=== PATIENT | male | born 1955 | race Caucasian/White ===

== ENCOUNTER 2019-03-29 05:59 | Day surgery (SDC) | payer OTHER ==
[~2019-03-29] VITALS: Ht 175.3 cm; Wt 156.1 kg
[2019-03-29 06:09] VITALS: BP 139/89
[2019-03-29] MEDS ORDERED: HEPARIN 1,000 UNITS/ML, 30ML ONE (06:26)
[2019-03-29] MEDS ORDERED: EXEN2PEN SQ (06:31)
[2019-03-29] MEDS ORDERED: CHOL2000 PO (06:31)
[2019-03-29] MEDS ORDERED: ATOR20TA37 PO (06:31)
[2019-03-29] MEDS ORDERED: UBID100C24 PO (06:31)
[2019-03-29] MEDS ORDERED: METF-688 PO (06:31)
[2019-03-29] MEDS ORDERED: ASPI81TA45 PO (06:31)
[2019-03-29] MEDS ORDERED: MAGN400T36 PO (06:31)
[2019-03-29] MEDS ORDERED: OMEG-160 PO (06:31)
[2019-03-29] MEDS ORDERED: MULT-257 PO (06:31)
[2019-03-29] MEDS ORDERED: BUPIVACAINE/PF 0.5% ONE (06:46)
[2019-03-29] MEDS ORDERED: MIDAZOLAM 1 MG/ML, 2ML ONE (06:48)
[2019-03-29] MEDS ORDERED: FENTANYL PF 100 MCG/2ML ONE (06:48)
[2019-03-29 06:49] LABS: ALANINE AMINOTRANSFERASE 45 U/L (12-78); ALBUMIN 3.6 g/dL (3.4-5.0); ANION GAP 5 mmol/L (5-15); CALCIUM 9.1 mg/dL (8.5-10.1); CHLORIDE 105 mmol/L (98-107); CREATININE 0.98 mg/dL (0.7-1.3)
[2019-03-29 06:51] LABS: ALKALINE PHOSPHATASE 133 U/L (45-117); BILIRUBIN,TOTAL 0.4 mg/dL (0.2-1.0); TOTAL PROTEIN 7.4 g/dL (6.4-8.2)
[2019-03-29] MEDS ORDERED: LACTATED RINGERS 1,000 ML IV SCH (06:53)
[2019-03-29] MEDS ORDERED: ACETAMINOPHEN 325 MG TABLET PO PRN (07:30)
[2019-03-29] MEDS ORDERED: OXYcodone 5 MG/5 ML ORAL.SOL UDC PO PRN (07:30)
[2019-03-29] MEDS ORDERED: HYDROmorphone 2 MG/ML, 1ML IVPush PRN (07:30)
[2019-03-29] MEDS ORDERED: hydrALAzine 20 MG/ML, 1ML IV PRN (07:30)
[2019-03-29] MEDS ORDERED: DIAZEPAM 5 MG/ML, 2ML IVPush PRN (07:30)
[2019-03-29] MEDS ORDERED: KETOROLAC 30 MG/1 ML IV PRN (07:30)
[2019-03-29] MEDS ORDERED: MEPERIDINE/PF 25MG/0.5ML IVPush PRN (07:30)
[2019-03-29] MEDS ORDERED: PROMETHAZINE 25 MG/ML, 1ML IV PRN (07:30)
[2019-03-29] MEDS ORDERED: FENTANYL PF 100 MCG/2ML IV PRN (07:30)
[2019-03-29] MEDS ORDERED: LABETALOL 5MG/ML, 20ML IV PRN (07:30)
[2019-03-29] MEDS ORDERED: ALBUTEROL SULFATE 2.5 MG/3 ML NPPB PRN (07:30)
[2019-03-29] MEDS ORDERED: GLYCOPYRROLATE 0.2MG/1ML, 5ML ONE (08:23)
[2019-03-29] MEDS ORDERED: NEOSTIGMINE 1 MG/ML, 10ML ONE (08:23)
[2019-03-29] MEDS ORDERED: CEFAZOLIN 1,000 MG ONE (08:23)
[2019-03-29] MEDS ORDERED: ROCURONIUM 10MG/ML,5ML ONE (08:23)
[2019-03-29] MEDS ORDERED: DEXAMETHASONE 4 MG/ML, 1ML ONE (08:23)
[2019-03-29] MEDS ORDERED: ONDANSETRON 2MG/ML, 2ML ONE (08:23)
[2019-03-29] MEDS ORDERED: PROPOFOL 10 MG/ML, 20ML ONE (08:23)
[2019-03-29] MEDS ORDERED: LIDOCAINE-MPF 2% ,5ML ONE (08:23)
[2019-03-29] MEDS ORDERED: SUCCINYLCHOLINE 20 MG/ML, 10ML ONE (08:23)
== END 2019-03-29 10:00 | disposition home or self-care (01) ==
LOC: OUT 05:59
PROVIDERS: ATTEND Surgery
DX: C20 Malignant neoplasm of rectum (principal); E11.9 Type 2 diabetes mellitus without complications; E78.5 Hyperlipidemia, unspecified; E66.01 Morbid (severe) obesity due to excess calories; Z68.43 Body mass index [BMI] 50.0-59.9, adult; Z79.82 Long term (current) use of aspirin; Z79.84 Long term (current) use of oral hypoglycemic drugs; Z79.899 Other long term (current) drug therapy; Z98.890 Other specified postprocedural states
CPT/HCPCS: 36415; 36561; 77001; 80053; 93005; C1788; J0330; J0690; J1100; J1644; J2250; J2405; J2704; J3010; J7120; J2710

== ENCOUNTER 2019-04-01 06:06 | Day surgery (SDC) | payer OTHER ==
[~2019-04-01] VITALS: Ht 175.3 cm; Wt 155.2 kg
[~2019-04-01 06:06] MED LIST: ASPI81TA45 PO; ATOR20TA37 PO; CHOL2000 PO; EXEN2PEN SQ; MAGN400T36 PO; METF-688 PO; MULT-257 PO; OMEG-160 PO; UBID100C24 PO
[2019-04-01] MEDS ORDERED: SODIUM CHLORIDE 0.9% 1,000 ML IV SCH (07:08)
[2019-04-01 07:09] VITALS: BP 151/91
[2019-04-01 08:11] LABS: INTERNATIONAL NORMALIZED RATIO 0.96 (0.93-1.1); PROTHROMBIN TIME 10.1 Seconds (9.6-11.5)
[2019-04-01] MEDS ORDERED: NALOXONE 1 MG/ML, 2ML ONE (08:20)
[2019-04-01] MEDS ORDERED: FLUMAZENIL 0.1 MG/1 ML, 5ML ONE (08:20)
[2019-04-01] MEDS ORDERED: MIDAZOLAM 1 MG/ML, 5ML ONE (08:20)
[2019-04-01] MEDS ORDERED: FENTANYL PF 100 MCG/2ML ONE ×2 (08:20)
== END 2019-04-01 11:05 | disposition home or self-care (01) ==
LOC: RAD 06:06
PROVIDERS: ATTEND Surgery
DX: R16.0 Hepatomegaly, not elsewhere classified (principal); C21.8 Malignant neoplasm of overlapping sites of rectum, anus and anal canal; E11.9 Type 2 diabetes mellitus without complications; E78.00 Pure hypercholesterolemia, unspecified; G47.30 Sleep apnea, unspecified; E66.9 Obesity, unspecified; Z68.43 Body mass index [BMI] 50.0-59.9, adult; Z98.890 Other specified postprocedural states
CPT/HCPCS: 47000; 77012; 82962; 85610; 88307; 88313; 99156; 99157; J2250; J3010; J7030; J2310

== ENCOUNTER 2019-04-23 11:39 | Outpatient (CLI) | payer OTHER | END 2019-04-23 23:59 | disposition home or self-care (01) | LOC: PETCFH 11:39 | PROVIDERS: ATTEND Internal Medicine Hematology & Oncology | DX: C78.7 Secondary malignant neoplasm of liver and intrahepatic bile duct (principal); C20 Malignant neoplasm of rectum | CPT/HCPCS: 78815; A9552 ==

== ENCOUNTER 2019-06-18 13:31 | Inpatient (IN) | payer OTHER ==
[~2019-06-18] VITALS: Ht 175.3 cm; Wt 168.6 kg
[2019-06-18] MEDS ORDERED: SODIUM CHLORIDE 0.9% 1,000ML IVBOLUS ONE (14:00)
[2019-06-18] MEDS ORDERED: SODIUM CHLORIDE FLUSH 10ML SYR IVF ONE (14:00)
[2019-06-18] MEDS ORDERED: DIPH,PERTUSS(ACELL),TET VAC/PF 0.5 ML IM-VACC ONE (14:12)
[2019-06-18] MEDS ORDERED: LIDOCAINE-MPF 1%, 5ML ONE (14:12)
--- NOTE | 2019-06-18 14:36 | NUR ---
LATE ENTRY: Tank is a 64 y/o male that arrives to the ed via ems from home for sudden onset of rest distress and not feeling well. Pt reports that when he got up he started to get resp distress imediately and was unable to get his breathing under control, Pt reports he is being treated for colorectal cancer. Pt arrivedon a cpap machine and noticeably was working hard to breathe. Transfered to our optiflow machine but was unable to tolerate so switched back to cpap on 13 peep, 35%o2 and. Pts effort returned. Pt central line Z"port" was accessed via sterile technique and labs were drawn.
[2019-06-18 14:42] LABS: BASOPHILS % (AUTO) 0 % (0-1); EOSINOPHILS # (AUTO) 0.02 x10^3/uL (0-0.4); EOSINOPHILS % (AUTO) 0 % (1-7); LYMPHOCYTES # (AUTO) 0.59 x10^3/uL (1-3.4); LYMPHOCYTES % (AUTO) 8 % (22-44); MD NO; MEAN CORPUSCULAR HEMOGLOBIN 33.5 pg (27.5-34.5); MEAN CORPUSCULAR HGB CONC 33.5 g/dL (33.2-36.2); MEAN CORPUSCULAR VOLUME 99.9 fL (81-97); MONOCYTES # (AUTO) 1.26 x10^3/uL (0.2-0.8); MONOCYTES % (AUTO) 16 % (2-9); NEUTROPHILS # (AUTO) 5.99 x10^3/uL (1.8-6.8); NEUTROPHILS % (AUTO) 76 % (42-75); PLATELET COUNT 113 x10^3/uL (130-400); RED BLOOD COUNT 4.51 x10^6/uL (4.38-5.82)
--- NOTE | 2019-06-18 14:47 | NUR ---
pt medicated per emar.
[2019-06-18 14:52] LABS: ALANINE AMINOTRANSFERASE 51 U/L (12-78); ALBUMIN 3.6 g/dL (3.4-5.0); ANION GAP 13 mmol/L (5-15); CALCIUM 8.9 mg/dL (8.5-10.1); CHLORIDE 103 mmol/L (98-107); CREATININE 1.43 mg/dL (0.7-1.3)
[2019-06-18 14:56] LABS: ALKALINE PHOSPHATASE 105 U/L (45-117); BILIRUBIN,TOTAL 0.9 mg/dL (0.2-1.0); INTERNATIONAL NORMALIZED RATIO 1.17 (0.93-1.1); PROTHROMBIN TIME 12.4 Seconds (9.6-11.5); TOTAL PROTEIN 7.3 g/dL (6.4-8.2)
--- NOTE | 2019-06-18 15:52 | NUR ---
Pt unstable with transfers, pt becomes cynotic in the face and resp rate increases by 10. Pt reports severe sob with exertion, pt asked to not move anymore. Pt moved to hospital bed and placed by on CPAP. Pt tolerating cpap well. informed of possible critical results on ct per ct team. Pt to recieve tpa possibly. Pt will move to trauma 4 for closer supervision. Pt has remained on monitors. updated on POC, MD informed. PT to be moved soon to critical care bay.
[2019-06-18] MEDS ORDERED: OMNIPAQUE 350 MG/ML, 100ML BOTTLE ONE (15:54)
[2019-06-18] MEDS ORDERED: ALTEPLASE 1 MG/ML, 100ML ONE (15:55)
--- NOTE | 2019-06-18 15:59 | NUR ---
bedside report from Justyn N[place]ES, pt moved to T4. pt on Bipap. Per MD hold Tpa at this time. at bedside, updated on POC.
--- NOTE | 2019-06-18 15:59 | NUR ---
Cardiovascular US called for STAT ECHO per Dr. Frank.
[2019-06-18] MEDS ORDERED: ALTEPLASE 100 MG in BAG 1 EACH IV ONE (16:00)
--- NOTE | 2019-06-18 16:07 | NUR ---
Bedside report to Myranda salas RN, pt on all monitors and lines verified at bedside.
--- NOTE | 2019-06-18 16:11 | NUR ---
ECHO AT BEDSIDE
--- NOTE | 2019-06-18 16:19 | NUR ---
MD Thorne at bedside to assess pt, bedside ECHO in progress. Pt in NAD, awaiting orders, WCTM.
[2019-06-18] MEDS ORDERED: BISACODYL 10 MG SUPP PR PRN (16:30)
[2019-06-18] MEDS ORDERED: ACETAMINOPHEN 325 MG TABLET PO PRN (16:30)
[2019-06-18] MEDS ORDERED: OXYcodone IR 5MG TABLET PO PRN (16:30)
[2019-06-18] MEDS: INSULIN LISPRO 100 UNITS/ML, PEN SQ-INSULIN SCH ×2 (16:30→21:34)
[2019-06-18] MEDS ORDERED: ONDANSETRON 2MG/ML, 2ML IVPush PRN (16:30)
[2019-06-18] MEDS ORDERED: POLYETHYLENE GLYCOL 17 GM PACKET PO PRN (16:30)
[2019-06-18] MEDS ORDERED: morphine SULFATE 10 MG/ML, 1ML IVPush PRN (16:30)
--- NOTE | 2019-06-18 16:30 | NUR ---
Last time pt ate was 06/18 at 2130
[2019-06-18] MEDS ORDERED: FENTANYL PF 100 MCG/2ML ONE (16:42)
[2019-06-18] MEDS ORDERED: MIDAZOLAM 1 MG/ML, 5ML ONE (16:42)
[2019-06-18] MEDS ORDERED: LIDOCAINE 1%, 20ML ONE (16:42)
--- NOTE | 2019-06-18 16:49 | NUR ---
DR. Reeves wants to send pt to cath-lab for the test first - US delay
[2019-06-18] MEDS ORDERED: ALTEPLASE 10 MG in SODIUM CHLORIDE 0.9% 240 ML IV ONE ×4 (17:00→18:00)
[2019-06-18] MEDS ORDERED: HEPARIN 25000 UNIT/250 ML ONE (17:06)
--- NOTE | 2019-06-18 17:07 | NUR ---
ALL PT BELONGINGS REMOVED AND GIVEN TO , PRE PROCEDURE AND CONSENT COMPLETED. REPORT TO VULCANIZING MACHINE OPERATOR RN, STAT FIBRINOGEN LEVEL ADDED ON PER VULCANIZING MACHINE OPERATOR RN, OK PER .
[2019-06-18 19:50] VITALS: BP 120/88
[2019-06-18] MEDS ORDERED: ONDANSETRON 2MG/ML, 2ML IV PRN (22:30)
[2019-06-18] MEDS ORDERED: LORazepam 2 MG/ML, 1ML IV PRN (22:30)
[2019-06-18] MEDS ORDERED: MORPHINE SULFATE 4 MG/ML, 1ML IVPush PRN (22:30)
[2019-06-18] MEDS ORDERED: HYDROcodone/APAP 5/325 TABLET PO PRN (22:30)
[2019-06-18] MEDS: RIVAROXABAN 15 MG TABLET PO SCH (23:04)
[2019-06-19 04:00] VITALS: BP 126/53
[2019-06-19 04:41] LABS: MEAN CORPUSCULAR HEMOGLOBIN 33.1 pg (27.5-34.5); MEAN CORPUSCULAR VOLUME 100.3 fL (81-97); MEAN PLATELET VOLUME 7.9 fL (7.4-10.4); PLATELET COUNT 103 x10^3/uL (130-400); RED BLOOD COUNT 4.04 x10^6/uL (4.38-5.82); RED CELL DISTRIBUTION WIDTH 21.8 % (9.4-14.8)
[2019-06-19 04:46] LABS: ALANINE AMINOTRANSFERASE 46 U/L (12-78); ANION GAP 8 mmol/L (5-15); CHLORIDE 107 mmol/L (98-107); CREATININE 1.16 mg/dL (0.7-1.3)
[2019-06-19 04:48] LABS: ALKALINE PHOSPHATASE 81 U/L (45-117); BILIRUBIN,TOTAL 0.7 mg/dL (0.2-1.0); TOTAL PROTEIN 6.3 g/dL (6.4-8.2)
[2019-06-19 05:47] LABS: MD YES
[2019-06-19 05:49] LABS: BASOS#(MANUAL) 0.06 x10^3/uL (0-0.1); BASOS% (MANUAL) 1 % (0-1); EOS#(MANUAL) 0.06 x10^3/uL (0.0-0.4); EOS% (MANUAL) 1 % (1-7); LYMPH#(MANUAL) 1.33 x10^3/uL (1-3.4); LYMPHS% (MANUAL) 23 % (22-44); MONOS#(MANUAL) 0.75 x10^3/uL (0.3-2.7); MONOS% (MANUAL) 13 % (2-9); SEGS% (MANUAL) 62 % (42-75)
[2019-06-19 05:50] LABS: <PLATELET ESTIMATE> DECREASED; <PLT MORPHOLOGY> NORMAL PLT MORPH; ANISOCYTOSIS 1+; POLYCHROMASIA 1+
[2019-06-19 08:06] LABS: TROPONIN I 0.831 ng/mL (0.000-0.045)
[2019-06-19] MEDS: RIVAROXABAN 15 MG TABLET PO SCH ×2 (08:14→20:19)
[2019-06-19] MEDS: PANTOPRAZOLE 40 MG IV IVPush SCH (08:14)
[2019-06-19] MEDS: SENNA/DOCUSATE TABLET PO SCH (08:15)
[2019-06-19] MEDS: INSULIN LISPRO 100 UNITS/ML, PEN SQ-INSULIN SCH ×4 (08:15→20:20)
[2019-06-19 18:02] VITALS: BP 130/80
[2019-06-20 02:32] VITALS: BP 119/76
[2019-06-20 04:15] VITALS: BP 119/76
[2019-06-20] MEDS: INSULIN LISPRO 100 UNITS/ML, PEN SQ-INSULIN SCH ×3 (07:50→17:03)
[2019-06-20 08:15] VITALS: BP 153/89
[2019-06-20] MEDS: SENNA/DOCUSATE TABLET PO SCH ×2 (08:34→08:36)
[2019-06-20] MEDS: RIVAROXABAN 15 MG TABLET PO SCH ×2 (08:34→17:03)
[2019-06-20] MEDS: PANTOPRAZOLE 40 MG IV IVPush SCH (08:35)
[2019-06-20 13:49] VITALS: BP 116/77
[2019-06-20] MEDS ORDERED: RIVA15TA PO (15:19)
[2019-06-20] MEDS ORDERED: RIVAROXABAN 15 MG TABLET PO SCH (17:00)
== END 2019-06-20 19:48 | disposition home or self-care (01) | DRG 280 ==
LOC: ED 16:37 → EDIP 16:38 → ED 17:47 → CCU 18:43 → 5SO 06-19 18:06
PROVIDERS: ADMIT Internal Medicine Cardiovascular Disease; ATTEND Internal Medicine Cardiovascular Disease
PROC: 5A09357 Assistance with Respiratory Ventilation, Less than 24 Consecutive Hours, Continuous Positive Airway Pressure (ICD-10-PCS; principal; 2019-06-18)
PROC: 4A023N6 Measurement of Cardiac Sampling and Pressure, Right Heart, Percutaneous Approach (ICD-10-PCS; 2019-06-18)
PROC: 02HP32Z Insertion of Monitoring Device into Pulmonary Trunk, Percutaneous Approach (ICD-10-PCS; 2019-06-18)
PROC: 5A09357 Assistance with Respiratory Ventilation, Less than 24 Consecutive Hours, Continuous Positive Airway Pressure (ICD-10-PCS; 2019-06-20)
DX: I21.A1 Myocardial infarction type 2 (principal); I26.09 Other pulmonary embolism with acute cor pulmonale; J96.01 Acute respiratory failure with hypoxia; N17.0 Acute kidney failure with tubular necrosis; R57.0 Cardiogenic shock; D68.59 Other primary thrombophilia; E87.1 Hypo-osmolality and hyponatremia; C20 Malignant neoplasm of rectum; C78.7 Secondary malignant neoplasm of liver and intrahepatic bile duct; Z68.43 Body mass index [BMI] 50.0-59.9, adult; D69.6 Thrombocytopenia, unspecified; D75.89 Other specified diseases of blood and blood-forming organs; E66.01 Morbid (severe) obesity due to excess calories; E78.5 Hyperlipidemia, unspecified; E11.65 Type 2 diabetes mellitus with hyperglycemia; E87.5 Hyperkalemia; G47.33 Obstructive sleep apnea (adult) (pediatric); I11.0 Hypertensive heart disease with heart failure; I50.811 Acute right heart failure; Z80.1 Family history of malignant neoplasm of trachea, bronchus and lung; Z82.3 Family history of stroke; Z87.891 Personal history of nicotine dependence
CPT/HCPCS: 36415; 36600; 37211; 93451; 99291; 99292; J3490; 71045; 71275; 80053; 82803; 82962; 83880; 84484; 85025; 85610; 85730; 87081; 93005; 93306; 93308; 93321; 93325; 93970; 94660; 99156; 99157; C1769; C1894; G0378; J2250; J3010; Q9967; C9113; J1815; J7030

== ENCOUNTER → 2019-07-19 | Outpatient (CLI) | payer OTHER ==
[~2019-07-19] MED LIST changes: +RIVA15TA PO
== END | disposition home or self-care (01) ==
LOC: PETCFH 12:29
PROVIDERS: ATTEND Internal Medicine Hematology & Oncology
DX: C20 Malignant neoplasm of rectum (principal)
CPT/HCPCS: 78815; A9552

== ENCOUNTER → 2019-10-03 | Outpatient (CLI) | payer OTHER ==
[~2019-10-03] MED LIST changes: +FISH OIL 1,3601 EACH PO; -OMEG-160 PO
== END | disposition home or self-care (01) ==
LOC: PETCFH 07:35
PROVIDERS: ATTEND Internal Medicine Hematology & Oncology
DX: C20 Malignant neoplasm of rectum (principal); K57.30 Diverticulosis of large intestine without perforation or abscess without bleeding; N62 Hypertrophy of breast
CPT/HCPCS: 78815; A9552

== ENCOUNTER → 2019-12-09 | Outpatient (CLI) | payer OTHER | END | disposition home or self-care (01) | LOC: CVU 11:01 | PROVIDERS: ATTEND Internal Medicine Cardiovascular Disease | DX: I34.8 Other nonrheumatic mitral valve disorders (principal); I51.7 Cardiomegaly; I82.90 Acute embolism and thrombosis of unspecified vein; E78.5 Hyperlipidemia, unspecified | CPT/HCPCS: 93306 ==